=== PATIENT | male | born 1955 | race Caucasian/White ===

== ENCOUNTER 2021-06-15 07:45 | Outpatient (CLI) | payer MEDICARE, OTHER ==
[2021-06-19] MEDS ORDERED: LORA-446 PO (18:36)
== END 2021-06-15 23:59 | disposition home or self-care (01) ==
LOC: ROC 07:45
PROVIDERS: ATTEND Radiology Radiation Oncology
DX: D33.3 Benign neoplasm of cranial nerves (principal)
CPT/HCPCS: G0463

== ENCOUNTER → 2021-08-15 | Outpatient (CLI) | payer MEDICARE, OTHER ==
[~2021-08-15] MED LIST: LORA-446 PO
== END | disposition home or self-care (01) ==
LOC: ROC 07:25
PROVIDERS: ATTEND Radiology Radiation Oncology
DX: Z08 Encounter for follow-up examination after completed treatment for malignant neoplasm (principal); D33.3 Benign neoplasm of cranial nerves
CPT/HCPCS: G0463